=== PATIENT | male | born 1960 | race Caucasian/White ===

== ENCOUNTER 2024-12-22 07:10 | Outpatient (CLI) | payer MEDICARE, MEDICAID ==
[~2024-12-22] VITALS: Ht 172.7 cm; Wt 84.8 kg
[~2024-12-22 07:10] MED LIST: PRED20TA PO
[2024-12-22] MEDS: albuterol 2.5 MG/3 ML nebule NEB ONE (07:56)
[2024-12-22 07:58] VITALS: PULSE 68; RESP 17; O2SAT 95
[2024-12-22 08:10] VITALS: PULSE 73; RESP 16
== END 2024-12-22 23:59 | disposition home or self-care (01) ==
LOC: RT 07:10
PROVIDERS: ATTEND Family Medicine
DX: J44.9 Chronic obstructive pulmonary disease, unspecified (principal)
CPT/HCPCS: 94060; 94760